=== PATIENT | female | born 1980 | race Caucasian/White ===

== ENCOUNTER 2017-02-07 05:58 | Emergency (ER) | payer BC ==
[2017-02-07] MEDS ORDERED: LORazepam 0.5 MG Tab PO ONE (06:18)
--- NOTE | 2017-02-07 06:18 | EDM.PDOC ---
ED HPI GENERAL MEDICAL PROBLEM - General Chief Complaint: General Stated Complaint: nausea shakey Time Seen by Provider: 02/07/17 06:09 - History of Present Illness INITIAL COMMENTS - FREE TEXT/NARRATIVE: 56-year-old female presents emergency room generally not feeling well. Patient is been having frequent anxiety tearful episodes. This is been going on for over a month and a half. About a month ago she was started on Prozac and Prilosec her stomach seems to be doing better most of the time certainly not all the time she did well for a couple of weeks after starting the Prozac however her symptoms seem to be returning. She notices a lot of temperature intolerances is eating very little and always seems to be cold. Patient denies any pain at this time no breathing difficulties or shortness of breath. - Related Data Allergies Allergy/AdvReac Type Severity Reaction Status Date / Time No Known Allergies Allergy Verified 02/07/17 06:05 Home Meds: Home Meds FLUoxetine [PROzac] 20 mg PO DAILY 02/07/17 [History] LORazepam [Ativan] 0.5 mg PO BID PRN #10 tablet 02/07/17 [Rx] Pantoprazole Sodium [Protonix] 40 mg PO DAILY 02/07/17 [History] Social & Family History - Tobacco Use Smoking Status *Q: Never Smoker Second Hand Smoke Exposure: No - Caffeine Use Caffeine Use: Reports: None - Recreational Drug Use Recreational Drug Use: No ED ROS GENERAL - Review of Systems Review Of Systems: See Below Constitutional: Reports: Other (She feels cold all the time). Denies: Fever, Chills HEENT: Reports: No Symptoms Respiratory: Reports: No Symptoms Cardiovascular: Reports: No Symptoms Endocrine: Reports: No Symptoms GI/Abdominal: Reports: Other (She has some intermittent heartburn). Denies: Constipation, Diarrhea, Nausea, Vomiting : Reports: No Symptoms Musculoskeletal: Reports: No Symptoms Skin: Reports: No Symptoms Neurological: Denies: Dizziness, Numbness Psychiatric: Reports: Anxiety ED EXAM, GENERAL - Physical Exam Exam: See Below Exam Limited By: No Limitations General Appearance: Anxious, Other (Tearful) Eye Exam: Bilateral Eye: Other (Possible mild exophthalmos) Ears: Normal External Exam, Normal Canal, Hearing Grossly Normal, Normal TMs Nose: Normal Inspection, Normal Mucosa, No Blood Throat/Mouth: Normal Inspection, Normal Lips, Normal Teeth, Normal Gums, Normal Oropharynx, Normal Voice, No Airway Compromise Head: Atraumatic, Normocephalic Neck: Normal Inspection, Supple, Non-Tender, Full Range of Motion. No: Lymphadenopathy (L), Lymphadenopathy (R), Thyromegaly Respiratory/Chest: No Respiratory Distress, Lungs Clear, Normal Breath Sounds Cardiovascular: Regular Rate, Rhythm, No Edema, No Murmur, Tachycardia GI/Abdominal: Normal Bowel Sounds, Soft, Non-Tender Back Exam: Normal Inspection. No: CVA Tenderness (L), CVA Tenderness (R) Extremities: Normal Inspection, No Pedal Edema Psychiatric: Tearful Course - Vital Signs Last Recorded V/S: Last Vital Signs Temp 36.9 C 02/07/17 06:01 Pulse 120 H 02/07/17 06:01 Resp 18 02/07/17 06:01 BP 153/104 H 02/07/17 06:01 Pulse Ox 100 02/07/17 06:01 - Orders/Labs/Meds Labs: Laboratory Tests 02/07/17 Range/Units 06:30 TSH 3rd Generation 2.666 (0.358-3.74) uIU/mL Meds: Medications Discontinued Medications Generic Name Dose Route Start Last Admin Trade Name Freq PRN Reason Stop Dose Admin Lorazepam 0.5 mg 02/07/17 06:18 02/07/17 06:24 Ativan PO 02/07/17 06:19 0.5 mg ONETIME ONE Administration - Re-Assessments/Exams Free Text/Narrative Re-Assessment/Exam: 02/07/17 07:18 Patient doing a little bit better after Ativan 0.5 by mouth TSH is in the normal range. With further discussion it sounds as though the Prozac is causing daytime sedation she's taken in the morning. Did suggest over the weekend to see how she does taking it in the evening. Departure - Departure Time of Disposition: 07:20 Disposition: Home, Self-Care 01 Clinical Impression: Anxiety - Discharge Information Prescriptions: LORazepam [Ativan] 0.5 mg PO BID PRN #10 tablet PRN Reason: Anxiety Referrals: Dayne Bailon MD [Primary Care Provider] - Forms: ED Department Discharge Additional Instructions: Return to the emergency room with any questions problems worsening symptoms. Follow-up with your physician for recheck next week. Continue your Prozac at the same dose. However, since it is causing daytime drowsiness try taking it in the evening and see if this helps. You have been given a prescription for Ativan 0.5 mg every 12 hours only as needed for anxiety. Use caution while taking this medication allow 12 hours after taking it before driving or returning to work.
[2017-02-07 07:30] VITALS: BP 130/90
== END 2017-02-07 07:30 | disposition home or self-care (01) ==
LOC: JD.ED 05:58
DX: F41.9 Anxiety disorder, unspecified (principal); Z79.899 Other long term (current) drug therapy
CPT/HCPCS: 36415; 84443; 99283; A9270

== ENCOUNTER 2019-06-14 22:10 | Emergency (ER) | payer BC ==
[2019-06-14 22:20] VITALS: BP 161/94; PULSE 74
[2019-06-14] MEDS ORDERED: Alum Hydrox/Mag Hydrox/Simeth 30 ML, Lidocaine 2% 15 ML PO STA ×2 (22:36)
--- NOTE | 2019-06-14 22:42 | EDM.PDOC ---
ED HPI GENERAL MEDICAL PROBLEM - General Chief Complaint: Chest Pain Stated Complaint: CHEST PAIN Time Seen by Provider: 06/14/19 22:21 Source of Information: Reports: Patient, Family () History Limitations: Reports: No Limitations - History of Present Illness INITIAL COMMENTS - FREE TEXT/NARRATIVE: Mrs. Garibay is a very pleasant 38-year-old woman with a past medical history significant for untreated GERD, who states that she was woken from sleep around 04:00 this morning with retrosternal chest pain, burning/dull/ache in character. Initially, it did not radiate, however, by this afternoon she had some pain felt under her left breast. It does not radiate anywhere else, however. She took some Advil and Pepcid around 09:00, which helped, but then her pain got worse again. She took about 8 TUMS over the course of the day, with no relief. She has not identified any modifiers. She states that she has felt slightly nauseated, but denies any other associated symptoms, such as dyspnea, diaphoresis, or sense of impending doom. The patient states that she has parents similar symptoms 2 or 3 times, about 3 years ago. Evaluation determined that her symptoms were due to GERD. She has not had similar symptoms, however, for about the past 2 years. The patient denies recent illness, such as fever, chills, cough, dyspnea, palpitations, vomiting, constipation, diarrhea, abdominal pain, urinary symptoms , recent weight gain or weight loss, recent bloody bowel movements or black bowel movements, recent joint aches, headaches, or rashes. The patient's PCP is Dr. Alissa Jackson. Middle Chest Pain Score (Numeric/FACES): 9 - Related Data Allergies Allergy/AdvReac Type Severity Reaction Status Date / Time No Known Allergies Allergy Verified 03/05/18 16:46 Home Meds: Home Meds Cholecalciferol (Vitamin D3) [Vitamin D3] 1,000 unit PO DAILY 03/05/18 [History] Multivitamin [Multivitamins] 1 each PO DAILY 03/05/18 [History] Vitamin B12 Gummies 2 tab PO DAILY 06/14/19 [History] Past Medical History Gastrointestinal History: Reports: G[employer]D [employer] History: Reports: - Past Surgical History HEENT Surgical History: Reports: Adenoidectomy, Oral Surgery (wisdom teeth extraction), Tonsillectomy Social & Family History - Family History Cardiac: Reports: [place] - Tobacco Use Smoking Status *Q: Never Smoker - Caffeine Use Caffeine Use: Reports: Coffee Other Caffeine Use: decaf - Alcohol Use Alcohol Use History: Yes Alcohol Use Frequency: Socially - Recreational Drug Use Recreational Drug Use: No - Living Situation & Occupation Living situation: Reports: , with Spouse, with Family (2 kids) Occupation: Employed (Tech Paraprofessional at elementary school) ED ROS GENERAL - Review of Systems Review Of Systems: Comprehensive ROS is negative, except as noted in HPI. ED EXAM, GENERAL - Physical Exam Exam: See Below Exam Limited By: No Limitations General Appearance: Alert, WD/WN, No Apparent Distress Eye Exam: Bilateral Eye: EOMI, Normal Inspection Ears: Normal External Exam, Hearing Grossly Normal Nose: Normal Inspection Throat/Mouth: Normal Inspection, Normal Lips, Normal Voice, No Airway Compromise Head: Atraumatic, Normocephalic Neck: Normal Inspection, Full Range of Motion Respiratory/Chest: No Respiratory Distress, Lungs Clear, Normal Breath Sounds, No Accessory Muscle Use, Other (Reproducible tenderness to palpation of the inferior aspect of the sternum, however, pain is not induced by having the patient press her hands together with outstretched arms in front of her, or by crossing either arm across her chest) Cardiovascular: Normal Peripheral Pulses, Regular Rate, Rhythm, No Edema, No Gallop, No JVD, No Murmur, No Rub Peripheral Pulses: 4+: Radial (L), Radial (R) GI/Abdominal: Normal Bowel Sounds, Soft, Non-Tender, No Organomegaly, No Distention, No Abnormal Bruit, No Mass (Female) Exam: Deferred Rectal (Female) Exam: Deferred Back Exam: Normal Inspection, Full Range of Motion, NT Extremities: Normal Inspection, Normal Range of Motion, No Pedal Edema, Normal Capillary Refill Neurological: Alert, Oriented, Normal Cognition, No Motor/Sensory Deficits Psychiatric: Normal Affect Skin Exam: Warm, Dry, Intact, Normal Color, No Rash Course - Vital Signs Last Recorded V/S: Last Vital Signs Temp 37.0 C 06/14/19 22:19 Pulse 74 06/14/19 22:19 Resp 15 06/14/19 22:19 BP 161/94 H 06/14/19 22:19 Pulse Ox 100 06/14/19 22:19 - Orders/Labs/Meds Orders: Active Orders 24 hr Category Date Time Status EKG Documentation Completion [RC] ASDIRECTED Care 06/14/19 22:29 Active Chest 2V [CR] Stat Exams 06/14/19 22:36 Taken EKG 12 Lead [EK] Stat Ther 06/14/19 22:29 Ordered Labs: Laboratory Tests 06/14/19 06/14/19 06/14/19 Range/Units 22:50 22:50 22:50 WBC 7.33 (3.98-10.04) K/mm3 RBC 4.11 (3.98-5.22) M/mm3 Hgb 12.3 (11.2-15.7) gm/dl Hct 37.6 (34.1-44.9) % MCV 91.5 (79.4-94.8) fl MCH 29.9 (25.6-32.2) pg MCHC 32.7 (32.2-35.5) g/dl RDW Std Deviation 38.2 (36.4-46.3) fL Plt Count 375 H (182-369) K/mm3 MPV 9.8 (9.4-12.3) fl Neut % (Auto) 58.4 (34.0-71.1) % Lymph % (Auto) 31.9 (19.3-51.7) % Imperial % (Auto) 8.2 (4.7-12.5) % Eos % (Auto) 1.0 (0.7-5.8) Baso % (Auto) 0.4 (0.1-1.2) % Neut # (Auto) 4.28 (1.56-6.13) K/mm3 Lymph # (Auto) 2.34 (1.18-3.74) K/mm3 Imperial # (Auto) 0.60 H (0.24-0.36) K/mm3 Eos # (Auto) 0.07 (0.04-0.36) K/mm3 Baso # (Auto) 0.03 (0.01-0.08) K/mm3 D-Dimer, Quantitative < 0.19 L (0.19-0.50) mg/L Sodium 142 (136-145) mEq/L Potassium 3.3 L (3.5-5.1) mEq/L Chloride 105 (98-107) mEq/L Carbon Dioxide 26 (21-32) mEq/L Anion Gap 14.3 (5-15) BUN 9 (7-18) mg/dL Creatinine 0.8 (0.55-1.02) mg/dL Est Cr Clr Drug Dosing 87.51 mL/min Estimated GFR (MDRD) > 60 (>60) mL/min BUN/Creatinine Ratio 11.3 L (14-18) Glucose 105 (74-106) mg/dL Calcium 9.7 (8.5-10.1) mg/dL Total Bilirubin 0.5 (0.2-1.0) mg/dL AST 14 L (15-37) U/L ALT 19 (14-59) U/L Alkaline Phosphatase 56 (46-116) U/L Troponin I < 0.017 (0.00-0.056) ng/mL Total Protein 6.9 (6.4-8.2) g/dl Albumin 3.9 (3.4-5.0) g/dl Globulin 3.0 gm/dL Albumin/Globulin Ratio 1.3 (1-2) Meds: Medications Discontinued Medications Generic Name Dose Route Start Last Admin Trade Name Freq PRN Reason Stop Dose Admin Al Hydroxide/Mg Hydroxide 30 0 ml 06/14/19 22:36 06/14/19 22:43 ml/ Lidocaine HCl 15 ml PO 06/14/19 22:37 45 ml ONETIME STA Administration - Re-Assessments/Exams Free Text/Narrative Re-Assessment/Exam: 06/14/19 22:39 The patient's history strongly suggests that her pain is due to GERD, although her physical exam raises the possibility of a musculoskeletal etiology. I have ordered a GI cocktail to see if that helps, along with a cardiac evaluation. 06/14/19 23:54 2-view chest radiograph appears to be grossly normal. The cardiac silhouette is within normal limits. No pulmonary vascular congestion. No pleural effusions. No focal infiltrate. No pneumothorax. Formal read per the Radiologist pending. The patient's CBC is remarkable for platelets slightly elevated at 375,000, and is otherwise unremarkable. Her CMP is remarkable for a potassium slightly depressed at 3.3, and is otherwise unremarkable. Her troponin is undetectably low. Her D-dimer is undetectably low. 06/15/19 00:00 Test results discussed with the patient and her . The patient reports that the GI cocktail gave her about 10-15 minutes of good relief, then her symptoms recurred, strongly indicating that her symptoms are due to GERD or gastritis. I explained that her workup today is unremarkable. I am recommending that she begin taking [id number] famotidine once or even twice a day on a regular basis. If that fails to control her symptoms, she may need to move up to a PPI, however, under those circumstances we would want her to undergo an EGD. The patient agreed. Departure - Departure Time of Disposition: 00:01 Disposition: Home, Self-Care 01 Condition: Good Clinical Impression: GERD (gastroesophageal reflux disease) - Discharge Information *PRESCRIPTION DRUG MONITORING PROGRAM REVIEWED*: Not Applicable *COPY OF PRESCRIPTION DRUG MONITORING REPORT IN PATIENT EDILMA: Not Applicable Instructions: Food Choices for Gastroesophageal Reflux Disease, Adult, Gastroesophageal Reflux Disease, Adult Referrals: Alissa Jackson MD [Primary Care Provider] - Forms: ED Department Discharge Additional Instructions: You were seen in the emergency room after waking up early this morning with retrosternal chest pain. Workup in the ER included blood work, a chest x-ray, and an ECG. Your entire workup was unremarkable. You have not suffered a heart attack. You do not have a blood clot in your lungs. You do not have pneumonia. You do not have a collapsed lung. You had 10-15 minutes of symptom improvement following a GI cocktail, strongly indicating that your symptoms were due to either GERD (acid reflux) or gastritis (inflammation of the lining of your stomach). We recommend that you start taking [id number] famotidine (Pepcid) once a day. If your symptoms persist, we recommend that you increase the dosage to one tablet every 12 hours. If your symptoms continue to persist, you may need to move up to a proton pump inhibitor, however, under those circumstances, we would recommend that you undergo an EGD (scope of your esophagus and stomach). Follow-up with your PCP, Dr. Alissa Jackson, as needed. If any other problems, please do not hesitate to return to the ER. Sepsis Event Note - Evaluation Sepsis Screening Result: No Definite Risk - Focused Exam Vital Signs: Vital Signs Temp Pulse Resp BP Pulse Ox 06/14/19 22:19 37.0 C 74 15 161/94 H 100 Date Exam was Performed: 06/15/19 Time Exam was Performed: 00:27 - My Orders Last 24 Hours: My Active Orders 06/14/19 22:29 EKG Documentation Completion [RC] ASDIRECTED EKG 12 Lead [EK] Stat 06/14/19 22:36 Chest 2V [CR] Stat - Assessment/Plan Last 24 Hours: My Active Orders 06/14/19 22:29 EKG Documentation Completion [RC] ASDIRECTED EKG 12 Lead [EK] Stat 06/14/19 22:36 Chest 2V [CR] Stat
--- NOTE | 2019-06-15 11:02 | CR ---
Chest: 2 views of the chest were obtained. Comparison: Prior chest x-ray of 03/05/18. Heart size and mediastinum are within normal limits. Lungs show no acute parenchymal change. Bony structures appear within normal limits for the patient's age. Impression: 1. Nothing acute is appreciated on 2 view chest x-ray. Diagnostic code #1 This report was dictated in [place] Standard Time
== END 2019-06-15 00:17 | disposition home or self-care (01) ==
LOC: JD.ED 22:10
DX: K21.9 Gastro-esophageal reflux disease without esophagitis (principal); Z98.890 Other specified postprocedural states
CPT/HCPCS: 36415; 71046; 80053; 84484; 85025; 85379; 93005; 99285; A9270; 93010; 99283

== ENCOUNTER 2023-10-25 07:11 | Day surgery (SDC) | payer BC ==
[~2023-10-25 07:11] MED LIST: Sodium Chloride 0.9% 10 ML Syringe FLUSH PRN; Sodium Chloride 0.9% 10 ML Syringe FLUSH SCH
[2023-10-25] MEDS: Lactated Ringers 1,000 ML IV SCH (07:30)
[2023-10-25] MEDS ORDERED: Propofol 200 MG/20 ML SDV ONE (08:53)
[2023-10-25 10:38] VITALS: BP 115/72; PULSE 72
== END 2023-10-25 10:25 | disposition home or self-care (01) ==
LOC: JD.SDS 07:11
PROVIDERS: ATTEND Surgery
DX: K62.5 Hemorrhage of anus and rectum (principal); I10 Essential (primary) hypertension; K21.9 Gastro-esophageal reflux disease without esophagitis; Z79.899 Other long term (current) drug therapy
CPT/HCPCS: J2704; J7120